=== PATIENT | male | born 2000 | race Two or more races ===

== ENCOUNTER 2025-03-02 13:24 | Emergency (ER) | payer OTHER, SELFPAY ==
--- NOTE | ~2025-03-02 | XR_ITS ---
CLINICAL HISTORY: L chest rib pain --- Additional Notes or Special Instructions: r o PTX Chest Radiographs, 2 views Comparison: None Findings: No cardiomegaly. Normal mediastinal contours. No pneumothorax. No opacity. No pleural effusion. Normal upper abdomen. No acute fracture. Impression: No acute findings. This document has been electronically signed by: Gretel Isidro MD on 03/02/2025 14:53:03
--- NOTE | 2025-03-02 14:06 | ED.BACK ---
HPI - Back Pain/Injury General Chief Complaint: Back Pain/Injury Stated Complaint: Lower back pain Time Seen by Provider: 03/02/25 20:03 History of Present Illness ED Provider: Redd FOURNIER Narrative: The patient is a 24-year-old male. He is [place] and primarily speaks [place] Creole. He was interviewed with a tele patient day coordinator. He says that he has no significant past medical history. He is on no medications. He says that yesterday at around 13:00 he developed pain in the back of his left chest which is worse when he moves and when he takes a deep breath. No fever, sweats, chills. No significant cough. He can not think of anything that might have provoked this symptom. He has not been sick otherwise. No nausea or vomiting. He says he could not sleep last night because of the pain. Related Data Previous Rx's ?Medication ?Instructions ?Recorded acetaminophen 500 mg capsule 1,000 mg (2 x 500 mg) PO Q8H PRN 03/02/25 fever or pain #14 caps ibuprofen 400 mg tablet 400 mg PO Q6H PRN pain #14 tabs 03/02/25 Allergies Allergy/AdvReac Type Severity Reaction Status Date / Time No Known Allergies Allergy Verified 03/02/25 14:15 Review of Systems Review of Systems: Yes all other systems are reviewed and are negative [facility] Social History Social History Alcohol intake: current Smoked in Last 30 Days: No Use of substances other than those prescribed or required for medical reasons: No Advance Directives: No Advance Directives Information Provided: No Physical Exam Vital Signs: Vital Signs: Last Vital Signs Temp 98.9 F 03/02/25 21:36 Pulse 74 03/02/25 21:36 Resp 16 03/02/25 21:36 BP 123/78 03/02/25 21:36 Pulse Ox 99 03/02/25 21:36 O2 Del Method Room Air 03/02/25 21:36 BMI result Body Mass Index 21.5 Const: Other: The patient is a slim, healthy looking 24-year-old. He does not seem in acute distress. Orientation/consciousness: patient oriented x3 HEENT: Other: Face is symmetrical. Mucous membranes moist. Eyes: General: appearance normal, both eyes and all related structures Neck: Neck: Yes normal visual inspection, Yes full ROM and Yes no JVD Chest: Other: It was questionable whether there was reproducible chest wall tenderness in the left posterior chest. No crepitus or subcutaneous emphysema. Resp: Effort & Inspection: normal respiratory effort Auscultation: clear to auscultation bilaterally Cardio: Rate: regular rate Rhythm: regular rhythm Heart sounds: S1 normal heart sound present and S2 normal heart sound present GI: Other: The abdomen is soft and nontender. Specifically no left upper quadrant tenderness. Skin: Other: Skin was dry and unremarkable Neuro: General: patient oriented x3, gait normal, tone normal, moves all extremities, no focal motor deficits and CN's II-XI intact bilaterally Extrem: Other: No calf swelling or tenderness, no asymmetry, no edema Course Course Course Narrative: This is a Rapid Medical Exam performed in triage by Karla Donis PA-C. Full HPI, ROS and PE to be performed by primary ED provider. 24 yo M [place] Creole speaking presenting to the ED c/o L sided body pain radiating to back/ kidney w/ assoc SOB from pain x yest. denies injury/trauma/fall, urinary sx PE: Splinting in discomfort. Mild left sided posterior lateral lower rib reproducible tenderness. No rash/erythema or ecchymosis. Abdomen is soft and nontender. No CVAT Plan: EKG, labs, CXR, UA Medications Administered Discontinued Medications Generic Name Dose Route Start Last Admin Trade Name Freq PRN Reason Stop Dose Admin Ketorolac Tromethamine 30 mg 03/02/25 20:28 03/02/25 20:34 Ketorolac Tromethamine 30 Mg/Ml Vial IM 03/02/25 20:29 30 mg ONCE ONE Administration Medical Decision Making Medical Decision Making [facility] Narrative: The patient is an ordinarily healthy, Slim, and athletic looking 24-year-old nonsmoker who has left-sided posterior thoracic pain that seems to be exacerbated by movements and deep breaths. The patient has a negative chest x-ray. The patient has unremarkable vital signs. D-dimer is normal. Physical exam is unremarkable. I do not have a good explanation as to why this person might have chest wall pain but clinically this seems to be chest wall pain. The patient was given an injection of ketorolac for pain with improvement. The patient will be discharged with a prescriptions for ibuprofen and acetaminophen and recommended to try to get a PCP. He should return if worse. Lab Data 03/02/25 15:13 03/02/25 15:13 Labs: Lab Results 03/02/25 03/02/25 Range/Units 15:13 20:50 WBC 5.9 (4.8-10.8) X10*3/uL RBC 5.28 (4.60-5.80) X10*6/uL Hgb 16.1 (14.0-18.0) g/dl Hct 47.0 (42.0-52.0) % MCV 89.0 (80.0-98.0) fL MCH 30.5 (27.0-33.0) pg MCHC 34.3 (31.0-36.0) g/dl RDW 13.5 (11.0-16.0) % Plt Count 231 (160-400) X10*3/uL MPV 8.8 L (9.4-12.4) fL Immature Gran % (Auto) 0.2 (0.0-0.4) % Neut % (Auto) 54.1 (45-73) % Lymph % (Auto) 30.2 (20-40) % [place] % (Auto) 13.5 H (2-11) % Eos % (Auto) 1.5 (0-4) % Baso % (Auto) 0.5 (0-2) % Lymph # (Auto) 1.8 (1.2-4.9) X10*3/uL [place] # (Auto) 0.8 (0.1-1.2) X10*3/uL Eos # (Auto) 0.1 (0.0-0.4) X10*3/uL Baso # (Auto) 0.0 (0.0-0.2) X10*3/uL Abs Immat Gran (auto) 0.01 (0.00-0.03) X10*3/uL Absolute Neuts (auto) 3.2 (2.0-8.3) x10*3/uL Absolute Nucleated RBC 0.000 (0.0-0.012) X10*3/uL Nucleated RBC % (auto) 0.0 (0.0-0.2) /100WBC D-Dimer High Sensitivty < 150 NG/ML Sodium 140 (135-145) mmol/L Potassium 4.1 (3.3-5.1) mmol/L Chloride 102 (96-108) mmol/L Carbon Dioxide 31 H (22-29) mmol/L Anion Gap 11 L (12-20) BUN 8 L (9-16) mg/dL Creatinine 0.95 (0.5-1.4) mg/dL Estim Creat Clear Calc 116.3 Estimated GFR > 60 Random Glucose 110 (60-115) mg/dL Calcium 10.3 H (8.4-10.2) mg/dL Magnesium 2.2 (1.6-2.6) mg/dL Total Bilirubin 1.0 (0.0-1.0) mg/dL Direct Bilirubin 0.3 (0.0-0.5) mg/dL AST 23 (5-37) U/L ALT 28 (0-40) U/L Alkaline Phosphatase 54 (39-117) U/L Total Protein 8.0 (6.5-8.0) g/dL Albumin 5.1 H (3.5-5.0) g/dL Lipase 18 (8-78) U/L Urine Color Yellow Urine Appearance Clear Urine pH >= 9.0 (5.0-9.0) Ur Specific [place] 1.020 (1.005-1.025) Urine Protein Trace (Neg-Trace) mg/dL Urine Glucose (UA) Negative (Negative) mg/dL Urine Ketones Trace (Negative) mg/dL Urine Blood Negative (Negative) Urine Nitrite Negative (Negative) Ur Leukocyte Esterase Negative (Negative) Discharge Plan Discharge Clinical Impression: Left-sided chest wall pain Patient Disposition: Home, Self-Care Additional Instructions: Your testing in the emergency room today is all very reassuring. I think you are having some kind of muscular pain in the left side of your chest. You may use ibuprofen and acetaminophen as needed for pain. I have sent prescriptions for these medications to the [facility] on [facility]. Please work on getting a primary care doctor. Return to the emergency room if you feel significantly worse especially if you develop shortness of breath or a fever. Prescriptions: New ibuprofen 400 mg tablet 400 mg PO Q6H PRN (Reason: pain) Qty: 14 0RF acetaminophen 500 mg capsule 1,000 mg PO Q8H PRN (Reason: fever or pain) Qty: 14 0RF Referrals: [facility] [Provider Group] [facility] [place] [facility] [Provider Group] Interventions: ED Discharge Assessment Last Done: 03/02/25 21:36 Discharge Date/Time: 03/02/25 21:38 Print Language: Vikram
[2025-03-02 14:09] VITALS: BP 110/62; PULSE 59; RESP 18; TEMP 36.8; O2SAT 100; BMI 21.5
[2025-03-02 15:19] LABS: MANUAL DIFF FLAG NO
[2025-03-02 15:21] LABS: Basophils Percent Auto 0.5 % (0-2); Eosinophils Absolute Auto 0.1 X10*3/uL (0.0-0.4); Eosinophils Percent Auto 1.5 % (0-4); Hemoglobin 16.1 g/dl (14.0-18.0); Imm Gran Abs Auto 0.01 X10*3/uL (0.00-0.03); Imm Gran Pct Auto 0.2 % (0.0-0.4); Lymphocytes Absolute Auto 1.8 X10*3/uL (1.2-4.9); Lymphocytes Percent Auto 30.2 % (20-40); Mean Corpuscular HGB Conc 34.3 g/dl (31.0-36.0); Mean Corpuscular Hemoglobin 30.5 pg (27.0-33.0); Mean Platelet Volume 8.8 fL (9.4-12.4); Monocytes Absolute Auto 0.8 X10*3/uL (0.1-1.2); Monocytes Percent Auto 13.5 % (2-11); Neutrophils Absolute Auto 3.2 x10*3/uL (2.0-8.3); Neutrophils Percent Auto 54.1 % (45-73); Platelet Count 231 X10*3/uL (160-400); Red Blood Count 5.28 X10*6/uL (4.60-5.80); Red Cell Distribution Width 13.5 % (11.0-16.0); White Blood Count 5.9 X10*3/uL (4.8-10.8)
[2025-03-02 15:22] LABS: Appearance Urine Clear; Color Urine Yellow; Glucose Urine UA Negative (Negative); Leukocyte Esterase Urine Negative (Negative); Nitrite Urine Negative (Negative); PH >= 9.0 (5.0-9.0); Urine Blood Negative (Negative); Urine Ketones Trace mg/dL (Negative); Urine Protein Trace mg/dL (Neg-Trace)
[2025-03-02 15:42] LABS: Alanine Aminotransferase 28 U/L (0-40); Albumin Level 5.1 g/dL (3.5-5.0); Anion Gap 11 (12-20); Aspartate Amino Transferase 23 U/L (5-37); Bilirubin Direct 0.3 mg/dL (0.0-0.5); Blood Urea Nitrogen 8 mg/dL (9-16); Calcium 10.3 mg/dL (8.4-10.2); Carbon Dioxide 31 mmol/L (22-29); Chloride 102 mmol/L (96-108); Creatinine Clr Calc Pharmacy 116.3; Estimated Glomerular Filt Rate > 60; Glucose Random 110 mg/dL (60-115); Lipase 18 U/L (8-78); Magnesium 2.2 mg/dL (1.6-2.6); Potassium 4.1 mmol/L (3.3-5.1); Sodium 140 mmol/L (135-145)
[2025-03-02 19:12] LABS: Alkaline Phosphatase 54 U/L (39-117)
[2025-03-02 20:34] VITALS: BP 123/78; PULSE 74; RESP 16; O2SAT 99
[2025-03-02] MEDS: Ketorolac Tromethamine 30 MG/ML VIAL IM (20:34)
[2025-03-02 21:03] LABS: D Dimer High Sensitivity < 150 NG/ML
[2025-03-02 21:36] VITALS: BP 123/78; PULSE 74; RESP 16; TEMP 37.2; O2SAT 99
== END 2025-03-02 21:38 | disposition home or self-care (01) ==
PROVIDERS: Physician Assistant; Emergency Provider Emergency Medicine
DX: R07.81 Pleurodynia (principal); R07.89 Other chest pain
CPT/HCPCS: 36415; 71046; 80048; 80076; 81003; 83690; 83735; 85025; 85379; 96372; 99284; J1885

== ENCOUNTER → 2025-03-02 14:13 | Outpatient (BNV) | payer MEDICAID, SELFPAY | PROVIDERS: Visit Provider Radiology Diagnostic Radiology | DX: R07.81 Pleurodynia (principal) | CPT/HCPCS: 71046 ==